=== PATIENT | female | born 1960 | race Caucasian/White ===

== ENCOUNTER → 2020-09-07 13:44 | Outpatient (BNVA) | payer OTHER, SELFPAY | PROVIDERS: PCP Internal Medicine; Referring Provider Internal Medicine; Visit Provider Obstetrics & Gynecology | DX: Z76.89 Persons encountering health services in other specified circumstances (principal) ==

== ENCOUNTER 2021-01-08 08:37 | Outpatient (REF) | payer OTHER, SELFPAY ==
--- NOTE | ~2021-01-08 | US_ITS ---
EXAMINATION: ULTRASOUND OF THE PELVIS CLINICAL INFORMATION: Postmenopausal bleeding. COMPARISON: 07/12/2020. TECHNIQUE: Transabdominal and transvaginal pelvic ultrasound. A transvaginal study was performed in addition to the transabdominal study which did not yield an adequate examination of the uterus and ovaries due to superimposed distended gas-filled loops of bowel. FINDINGS: The uterus is normal in size and appearance, measuring 12.2 x 7.5 x 10.5 cm longitudinally, anteroposteriorly and transversely. The endometrial stripe thickness is somewhat prominent, measuring 0.6 cm in thickness. Multiple uterine fibroids are again noted. 1. Right uterine body/fundus. Isoechoic to somewhat hyperechoic measuring 5 x 4.6 x 5.2 cm, similar to prior. 2. Posterior uterine fundus/body appearing somewhat hyperechoic measuring 3.6 x 2.9 x 3 cm, previously 3.2 x 4.3 x 4 cm. 3. Left posterior uterine body. This is heterogeneously hypoechoic measuring 2.9 x 2 x 2.5 cm, not previously seen. 4. Lower uterine segment anteriorly, somewhat hyperechoic, measuring 4.1 x 3.3 x 4 cm, previously 5.5 x 4.7 x 5.2 cm. The ovaries are not visualized. No adnexal mass or free fluid collection seen. US/US transvaginal IMPRESSION: Multiple uterine fibroids are again noted, relatively similar in appearance to previous imaging. Somewhat prominent endometrial stripe measuring 0.6 cm.
--- NOTE | ~2021-01-08 | US_ITS ---
EXAMINATION: ULTRASOUND OF THE PELVIS CLINICAL INFORMATION: Postmenopausal bleeding. COMPARISON: 07/12/2020. TECHNIQUE: Transabdominal and transvaginal pelvic ultrasound. A transvaginal study was performed in addition to the transabdominal study which did not yield an adequate examination of the uterus and ovaries due to superimposed distended gas-filled loops of bowel. FINDINGS: The uterus is normal in size and appearance, measuring 12.2 x 7.5 x 10.5 cm longitudinally, anteroposteriorly and transversely. The endometrial stripe thickness is somewhat prominent, measuring 0.6 cm in thickness. Multiple uterine fibroids are again noted. 1. Right uterine body/fundus. Isoechoic to somewhat hyperechoic measuring 5 x 4.6 x 5.2 cm, similar to prior. 2. Posterior uterine fundus/body appearing somewhat hyperechoic measuring 3.6 x 2.9 x 3 cm, previously 3.2 x 4.3 x 4 cm. 3. Left posterior uterine body. This is heterogeneously hypoechoic measuring 2.9 x 2 x 2.5 cm, not previously seen. 4. Lower uterine segment anteriorly, somewhat hyperechoic, measuring 4.1 x 3.3 x 4 cm, previously 5.5 x 4.7 x 5.2 cm. The ovaries are not visualized. No adnexal mass or free fluid collection seen. US/US pelvic complete IMPRESSION: Multiple uterine fibroids are again noted, relatively similar in appearance to previous imaging. Somewhat prominent endometrial stripe measuring 0.6 cm.
== END 2021-01-08 08:38 | disposition home or self-care (01) ==
LOC: HO.HMGCX 08:37
PROVIDERS: Visit Provider Obstetrics & Gynecology
DX: D21.9 Benign neoplasm of connective and other soft tissue, unspecified (principal)
CPT/HCPCS: 76830; 76856

== ENCOUNTER 2021-01-15 13:20 | Outpatient (REF) | payer OTHER, SELFPAY | END 2021-01-15 13:21 | disposition home or self-care (01) | LOC: HO.LAB 13:20 | PROVIDERS: PCP Internal Medicine; Visit Provider Obstetrics & Gynecology | DX: N95.0 Postmenopausal bleeding (principal); Z90.710 Acquired absence of both cervix and uterus | CPT/HCPCS: 58100; 88305 ==

== ENCOUNTER → 2021-01-29 14:53 | Outpatient (BNVA) | payer OTHER, SELFPAY | PROVIDERS: PCP Internal Medicine; Visit Provider Obstetrics & Gynecology ==

== ENCOUNTER → 2021-01-31 12:51 | Outpatient (BNVA) | payer OTHER, SELFPAY | PROVIDERS: PCP Internal Medicine; Visit Provider Obstetrics & Gynecology ==

== ENCOUNTER 2021-02-23 06:06 | Day surgery (SDC) | payer OTHER, SELFPAY ==
[2021-02-05 10:36] VITALS: BMI 33.0
[2021-02-23 06:14] VITALS: BP 157/89; PULSE 94; RESP 18; TEMP 35.6; O2SAT 97
[2021-02-23 06:38] VITALS: BMI 33.0
[2021-02-23] MEDS: Lactated Ringers 1,000 ML 50 ML IV (06:38)
--- NOTE | 2021-02-23 07:18 | P.CONAN_ITS ---
[facility] Active Problems Active Problems: All Active Problems (Updated 01/29/21 @ 15:44 by Oliver Fleming MD) Myoma (Acute) Postmenopausal bleeding (Acute) Past Medical History Medical History History of hysteroscopy Radial scar of right breast Family History Family History Maternal Grandmother Accelerated hypertension Breast CA Surgical History Surgical History History of breast surgery Social History Social History Alcohol intake: current Alcohol intake frequency: holidays/special occasions only Smoking Status: Never smoker Use of substances other than those prescribed or required for medical reasons: No Have you been hit, kicked, punched, or otherwise hurt by someone within the past year? If so, by whom?: No Advance Directives: No Advance Directives Information Provided: Yes Gender identity: female Meds Allergies Allergy/AdvReac Type Severity Reaction Status Date / Time Clindamycin HCl Allergy Unknown ? Uncoded 02/23/21 06:20 Active Medications: Current Medications Generic Name Dose Route Start Last Admin Trade Name Freq PRN Reason Stop Dose Admin Lactated Ringer's 1,000 mls @ 50 mls/hr 02/22/21 07:45 02/23/21 06:38 Lr IV 50 mls/hr .Q20H ELIER Administration Home Medications Medication Instructions Recorded Confirmed Last Taken Type loratadine 10 mg tablet 10 mg PO DAILY 09/07/20 01/31/21 Unknown History cholecalciferol (vitamin D3) 10 10 mcg PO DAILY 01/31/21 01/31/21 Unknown History mcg (400 unit) capsule Exam Exam Date and Time: February 23, 2021717 Height,Weight and Vital Signs: Height 5 ft 7 in Weight 95.788 kg Last Vital Signs Temp 96.0 F L 02/23/21 06:14 Pulse 94 02/23/21 06:14 Resp 18 02/23/21 06:14 BP 157/89 H 02/23/21 06:14 Pulse Ox 97 02/23/21 06:14 Airway Mallampati Class: III TM Dist: >3cm Neck ROM: Full Assessment and Plan Assessment Anesthesia Assessment: Anesthesia Plan Discussed and Chart Reviewed Final Anesthetic Review NPO: Yes ASA Class: II Final Preanesthetic Review: No Changes in Pt Med Stat, Meds/Allgs Chart Reviewed, Consent Obtained/Reviewed and Anes Risks/Benef Reviewed Patient Risk: Low Procedure Risk: Low Assessment/Block/Sedation in SS: Assess/Block/Sedation-SS Anesthetic Plan Anesthetic Plan: MAC: Disposition: Standard PACU
--- NOTE | 2021-02-23 07:32 | MHC.SHP ---
Pre-Procedural Eval Section A The patient is an INPATIENT: No Changes since office visit: No Cold of Flu in the past 2 weeks, No New Medical Problems, No Changes in Medication and No Patient answered all questions The History & Physical has been completed within 30 days and I have reviewed it.: Yes Section B Chief Complaint: PMB Allergies: Allergies Allergy/AdvReac Type Severity Reaction Status Date / Time Clindamycin HCl Allergy Unknown ? Uncoded 02/23/21 06:20 Plan Diagnosis/Plan: Unchanged I have reviewed the history and physical and performed a pertinent physical examination on my patient. No changes have occurred unless specified.
--- NOTE | 2021-02-23 07:48 | P.OP_ITS ---
Operative Note Operative Note Date of Service: 02/23/21 Narrative: Preop Diagnosis: Post Menopausal bleeding Operation: Diagnostic Hysteroscopy, Dilataion & Curettage Post Op Diagnosis: Normal endometrial cavity QBL: Minimal Anesthesia: MAC Surgeon: Oliver Fleming MD Imaging System Administrator: None Complication: None Pathology: Endometrial Scrapings Complication: None Pathology: Endometrial Scrapings Procedure: The patient was put in the dorsal lithotomy position, scrubbed, and draped in the usual manner. A sterile speculum was inserted in the patient's vagina. The anterior lip of the cervix was grasped with a single tooth tenaculum. The cervix was dilated up to 5 mm, then the scope was inserted in the patient's uterus. Inspection revealed Normal endometrial cavity. The Myosure Reach device was used; . At the end of the procedure, all instruments were taken out of the patient uterine and vaginal cavity. The single tooth tenaculum was removed and homeostasis was assured using pressure,. The patient tolerated the procedure well and was transferred to the PACU in a stable condition.
--- NOTE | 2021-02-23 07:48 | PM.OP ---
Brief Operative Note Date of Service: 02/23/21 Pre-op diagnosis: Post menopausal bleeding Post-op diagnosis: same Procedure: Hysteroscopy D&C, Polypectomy Surgeon: Oliver Fleming MD Anesthesia: MAC Estimated blood loss (mL): 0 Pathology: other (Endometrial Scrapping) Condition: stable Disposition: PACU
[2021-02-23 07:55] VITALS: BP 120/64; PULSE 83; RESP 12; TEMP 36.3; O2SAT 95
[2021-02-23 08:10] VITALS: BP 135/77; PULSE 83; RESP 18; TEMP 36.3; O2SAT 95
== END 2021-02-23 08:50 | disposition home or self-care (01) ==
LOC: HO.SSS 06:06
PROVIDERS: PCP Internal Medicine; Visit Provider Obstetrics & Gynecology
PROC: 0UDB8ZZ Extraction of Endometrium, Via Natural or Artificial Opening Endoscopic (ICD-10-PCS; CPT 58558; principal; 2021-02-23 07:30)
DX: N95.0 Postmenopausal bleeding (principal); Z88.1 Allergy status to other antibiotic agents
CPT/HCPCS: 58558; 88305; J1100; J2250; J2405; J3010

== ENCOUNTER → 2021-03-08 09:31 | Outpatient (BNVA) | payer OTHER, SELFPAY | PROVIDERS: PCP Internal Medicine; Visit Provider Obstetrics & Gynecology ==

== ENCOUNTER 2022-07-06 07:15 | Outpatient (REF) | payer OTHER, SELFPAY ==
[2022-07-06 11:13] LABS: MANUAL DIFF FLAG NO
[2022-07-06 11:17] LABS: Basophils Percent Auto 0.6 % (0-2); Eosinophils Absolute Auto 0.2 X10*3/uL (0.0-0.4); Eosinophils Percent Auto 3.1 % (0-4); Hematocrit 41.9 % (37.0-47.0); Hemoglobin 13.8 g/dl (12.0-16.0); Imm Gran Abs Auto 0.01 X10*3/uL (0.00-0.03); Imm Gran Pct Auto 0.2 % (0.0-0.4); Lymphocytes Percent Auto 31.5 % (20-40); Mean Corpuscular HGB Conc 32.9 g/dl (31.0-35.0); Mean Corpuscular Hemoglobin 29.2 pg (27.0-33.0); Mean Corpuscular Volume 88.6 fL (80.0-98.0); Mean Platelet Volume 10.6 fL (9.4-12.3); Monocytes Absolute Auto 0.4 X10*3/uL (0.1-1.2); Monocytes Percent Auto 6.7 % (2-11); Neutrophils Absolute Auto 3.7 x10*3/uL (2.0-8.3); Neutrophils Percent Auto 57.9 % (45-73); Platelet Count 322 X10*3/uL (160-400); Red Blood Count 4.73 X10*6/uL (4.20-5.50); Red Cell Distribution Width 13.5 % (11.0-16.0); White Blood Count 6.5 X10*3/uL (4.8-10.8)
[2022-07-06 11:49] LABS: Alanine Aminotransferase 12 U/L (0-31); Alkaline Phosphatase 97 U/L (39-117); Anion Gap 15 (12-20); Aspartate Amino Transferase 12 U/L (5-31); Bilirubin Total 0.3 mg/dL (0.0-1.0); Blood Urea Nitrogen 9 mg/dL (9-16); Calcium 8.6 mg/dL (8.4-10.2); Carbon Dioxide 25 mmol/L (22-29); Chloride 107 mmol/L (96-108); Cholesterol 243 mg/dL; Estimated Glomerular Filt Rate > 60; Glucose Fasting 95 mg/dL (60-99); HDL Cholesterol 49 mg/dL; LDL Cholesterol Calculated 170 mg/dl; Potassium 4.4 mmol/L (3.3-5.1); Sodium 143 mmol/L (135-145); Total Protein 6.5 g/dL (6.5-8.0); Triglycerides 124 mg/dL
[2022-07-06 11:56] LABS: TSH reflex Free T4 2.15 uIU/mL (0.32-4.0); Vitamin D 25-OH Total 13.6 ng/mL (>30)
== END 2022-07-06 07:16 | disposition home or self-care (01) ==
LOC: HO.HMGCLDS 07:15
PROVIDERS: PCP Internal Medicine; Visit Provider Internal Medicine
DX: Z00.00 Encounter for general adult medical examination without abnormal findings (principal)
CPT/HCPCS: 36415; 80053; 80061; 82306; 84443; 85025

== ENCOUNTER 2022-09-30 11:45 | Outpatient (REF) | payer OTHER, SELFPAY ==
--- NOTE | ~2022-09-30 | XR_ITS ---
EXAMINATION: XR WRIST, LEFT CLINICAL INFORMATION: Sprain left wrist COMPARISON: None TECHNIQUE: 4 views of the left wrist FINDINGS: There is no fracture. Possible small marginal osteophytes about the first carpometacarpal joint. No joint space narrowing. Remaining bones joints and soft tissues unremarkable. XR/XR wrist LT min 3V IMPRESSION: 1. No acute abnormality. 2. Possible Minimal osteoarthritis of the first carpometacarpal joint.
== END 2022-09-30 11:46 | disposition home or self-care (01) ==
LOC: HO.HMGCX 11:45
PROVIDERS: PCP Internal Medicine; Visit Provider Internal Medicine
DX: S63.502A Unspecified sprain of left wrist, initial encounter (principal); X58.XXXA Exposure to other specified factors, initial encounter; Y93.9 Activity, unspecified; Y92.9 Unspecified place or not applicable; Y99.9 Unspecified external cause status
CPT/HCPCS: 73110

== ENCOUNTER 2024-02-23 15:44 | Outpatient (AMB) | payer OTHER, SELFPAY ==
--- NOTE | 2024-02-23 15:45 | AM.OFFWIN_ITS ---
Intake Vital Signs 02/23/24 15:46 Height 5 ft 7 in BP 130/80 Blood Pressure Location Lt brachial Position Sitting Pulse 67 Pulse Source Pulse Oximeter Temp 97.8 F Temp Source Oral Pulse Oximetry (%) 98 Oxygen Delivery Method Room Air Intake Visit Reasons: EP Lt ear pain Intake Note: pt is here for left ear pain Patient Tobacco Use Status: Never used Tobacco Allergies Clindamycin HCl Allergy (Unknown, Uncoded 02/23/24 15:46) hives, itching, C diff Do you need a note to return to daycare/school/sports/work: No HPI HPI Comments History of Present Illness Details presents to walkin today for sick visit Endorses left ear pain for last 1 week. Denies hearing loss, drainage from ear, ringing in the ear, dizziness, syncope. Patient denies sore throat, cough, fever, vomiting, diarrhea, headache. [facility] Medical History History of hysteroscopy Radial scar of right breast Surgical History History of breast surgery History of hysteroscopy Family History Maternal Grandmother Accelerated hypertension Breast CA Social History Housing: House Alcohol intake: current Alcohol intake frequency: holidays/special occasions only Patient Tobacco Use Status: Never used Tobacco e-Cigarette/Vaping Use: Never Used Current occupational status: employed Gender identity: Female Cognitive needs: No Hearing needs: No Vision needs: Yes Female Reproductive History Menstrual Age of Menarche: 12 Review of Systems Const All systems reviewed & are unremarkable except as noted in HPI and below Physical Exam General: awake, alert, oriented. Answers questions appropriately. Fully engaged in examination. Skin: warm, dry, intact HEENT: Normocephalic. Hearing intact. Left TM erythematous, cloudy. Right TM normal to visual inspection. Cardiac: External chest normal in appearance. Respiratory: No cough, audible wheezing or stridor. Abdomen: without gross distension. MS: No obvious swelling or deformities. Neurological: Oriented to person, place, time and situation. Thought process intact. Psychiatric: Appropriate mood and affect. Good judgment and insight. Assessment & Plan Assessment & Plan (1) Left otitis media: Code(s): H66.92 - Otitis media, unspecified, left ear Plan presented to walkin today with complaints of left ear pain amoxicillin-pot clavulanate 400-57 mg, 2 tabs by mouth BID for 7 days. Patient request chewable tablets, she is unable to swallow large pills Drink plenty of fluids, avoid getting anything in the ear, tylenol/motrin as needed. All questions and concerns were addressed during the visit, patient agrees with the plan. Follow up with pcp or in walkin for any new or worsening symptoms. Medications: New amoxicillin-pot clavulanate 400-57 mg 2 tabs PO BID 14 tabs 0RF Coding Level of Care Code Est Pt Level 3 (40886) Diagnoses Left otitis media H66.92
[2024-02-23 15:46] VITALS: BP 130/80; PULSE 67; TEMP 36.6; O2SAT 98
== END 2024-02-23 16:20 | disposition home or self-care (01) ==
PROVIDERS: PCP Internal Medicine; Visit Provider Registered Nurse Emergency
DX: H66.92 Otitis media, unspecified, left ear (principal)
CPT/HCPCS: 99213

== ENCOUNTER 2025-11-01 14:32 | Outpatient (AMB) | payer OTHER, SELFPAY ==
--- NOTE | 2025-11-01 14:34 | MHC.OFFWIV ---
Intake Vital Signs 11/01/25 14:47 Height 5 ft 7.5 in Weight 199 lb BMI 30.7 BP 118/80 Blood Pressure Location Lt brachial Position Sitting Pulse 87 Pulse Source Pulse Oximeter Temp 97.7 F Temp Source Oral Pulse Oximetry (%) 97 Oxygen Delivery Method Room Air Intake Visit Reasons: EP Cough, congestion Intake Note: Patient presents c/o cough, chest congestion, nasal congestion x3 weeks. Patient Tobacco Use Status: Never used Tobacco Allergies clindamycin Allergy (Mild, Verified 11/01/25 14:50) hives, itching, c. diff HPI HPI Comments History of Present Illness Details History - The patient is a 64-year-old female presenting with a lingering cough that has persisted for approximately three weeks. - The cough presents as intermittent coughing fits and is exacerbated by lying down. - She has been managing her symptoms with cough drops and hydration, noting that cough syrup was not effective. - Approximately one week into her illness, she experienced what was likely Norovirus, characterized by five days of nausea, vomiting, and diarrhea. - She reports vomiting for about 16 hours during this period. - The patient has no history of asthma, COPD, or smoking. - She takes loratadine for allergies but is on no other medications. - She has not seen her primary care doctor since 2021 and needs to re-establish care. - Her earlier this year from Stage IV colon cancer that had metastasized to his lungs, presenting initially as a cough. - He was reportedly overdue for a colonoscopy. [facility] Medical History (Updated 11/01/25 @ 15:15 by Mary Turk PA-C) Subacute cough Radial scar of right breast Surgical History History of breast surgery History of hysteroscopy Family History Maternal Grandmother Accelerated hypertension Breast CA Social History Housing: House Alcohol intake: current Alcohol intake frequency: holidays/special occasions only Patient Tobacco Use Status: Never used Tobacco e-Cigarette/Vaping Use: Never Used Current occupational status: employed Gender identity: Female Cognitive needs: No Hearing needs: No Vision needs: Yes Female Reproductive History Menstrual Age of Menarche: 12 Review of Systems Narrative Review of Systems - Respiratory: Reports a lingering cough for three weeks that occurs in fits and is worse when lying down. - Denies shortness of breath or wheezing. - ENT: Reports feeling of a runny nose. - Denies sinus pain or head congestion. - Gastrointestinal: Reports a resolved episode of nausea, vomiting, and diarrhea that lasted five days. All systems reviewed and are unremarkable except as noted in HPI Physical Exam Exam Exam: Physical Exam General: Cooperative, healthy appearing, comfortable and no acute distress Orientation/consciousness: Patient oriented x3 Limitations: No limitations Head: Normal to inspection Ears: Hearing grossly normal bilaterally, external ears normal, EAC's normal bilaterally and TM's normal bilaterally Nose: Normal external nose present, Normal nares present and No nasal discharge present Face and sinus: Normal facial exam and sinuses nontender Mouth: Normal oral and palatal mucosa present and moist mucous membranes Throat: Tonsils normal, no exudates, uvula midline, posterior oropharynx erythema Eyes: Appearance normal, both eyes and all related structures Neck: Normal visual inspection, full ROM Respiratory: Clear to auscultation bilaterally. Normal respiratory effort, able to speak in complete sentences, not actively coughing, no respiratory distress, not tachypneic, no tripod positioning and no use of accessory muscles Cardiovascular: Regular rate and rhythm. Normal S1 and S2 Skin: No rashes or lesions noted Neuro: Patient oriented x3 Extremities: Normal to inspection and Yes no clubbing, cyanosis or edema Vital Signs: Last Vital Signs Temp 97.7 F 11/01/25 14:47 Pulse 87 11/01/25 14:47 BP 118/80 11/01/25 14:47 Pulse Ox 97 11/01/25 14:47 Oxygen Delivery Method Room Air 11/01/25 14:47 BMI result Body Mass Index 30.7 Assessment & Plan Assessment & Plan (1) Subacute cough: Code(s): R05.2 - Subacute cough Plan: Patient was informed and verbally consented to the use of an ambient scribe for clinic note documentation during this visit. - VSS, pt well appearing and PE unremarkable. - The patient's 3+ weeks of a cough is likely post-viral, a residual symptom of a recent cold. - The physical exam findings of clear lungs and an oxygen saturation of 97% support this assessment. - A chest X-ray was offered due to the length of the cough. - Reassurance was provided that a post-viral cough can sometimes last up to three months. - Recommended symptomatic management, including propping up with pillows while sleeping and continuing to take loratadine to help dry up secretions. - Sent Tesselon Pearles to help reduce cought at night. Establishment Of Primary Care - The patient has not seen a primary care provider since 2021 and needs to re-establish care for ongoing health maintenance and preventative screenings. - Provided information for a new clinic at [address] [place] [address], which may be more convenient for the patient, and suggested contacting them to schedule an appointment with a new provider, such as Dr. Lyon. - Advised the patient to get the clinic's phone number from the assistant front desk manager. Orders: Orders XR chest 2V Today R05.9 - Cough, unspecified Medications: New benzonatate DO NOT ALLOW CHILDREN TO HAVE ACCESS TO THIS MEDICATION IT IS DANGEROUS FOR CHILDREN. 200 mg PO BEDTIME PRN 10 caps 0RF cough Coding Level of Care Code New Pt Level 4 (10613) Diagnoses Subacute cough R05.2
[2025-11-01 14:47] VITALS: BP 118/80; PULSE 87; TEMP 36.5; O2SAT 97; BMI 30.7
--- OUTSIDE RECORDS SUMMARY | 2025-11-01 18:11 | XMS_ITS | Patient Health Record ---
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 Name Role Phone NICOLE AGUIRRE Primary Care Provider Unavail able AbyAyla beckman Unavailable [phone] Allergies Allergen (clinical drug ingredient) Drug/Non Drug Allergy documented on EMR Reaction Allergy Type Onset Date Status clindamycin Clindamycin HCl Unknown Drug Allergy Active Reason For Referral No Information Medications Medication SIG (Take, Route, Fr equency, Duration) Notes Start Date End Date Status miSOPROStol 200 MCG 2 tablets with food Orally night before procedure; Duration: 1 days 01/23/2016 Active Estrace 0.1 MG/GM 1g Vaginal q3d; Dura tion: 30 days 01/23/2016 Active Social History Tobacco Use: Social History Observation Description Date Details (start date - stop date) Former Smoker NA - NA Tobacco Use/Smoking Question Answer Notes Are you a former smoker Alcohol Screen (Audit-C) Question Answer Notes Did you have a drink contain ing alcohol in the past year? Yes How often did you have a dri nk containing alcohol in the past year? Monthly or less (1 point) How many drinks did you have on a typical day when you were drinking in the past year? 1 or 2 drinks (0 point) Points 1 Interpretation Negative Sexual History Question Answer Notes Had sex in the past 12 months (vaginal, oral, or anal)? Yes with Men only Prevention strategies discussed: Other Problems Problem Type SNOMED Code ICD Code Onset Dates Problem Status W/U Status Risk Notes Problem Postmenopausal atrophic vaginitis (39495066) Postmenopausal atrophic vaginitis (N95.2) Active confirmed Problem Postmenopausal bleeding (94652912) Postmenopausal bleeding (N95.0) Active confirmed Problem Obesity (959154031) Obesity, unspecified (E66.9) Active confirmed Plan Of Treatment No Information Insurance Providers Payer Name Payer Address Payer Phone Subscriber Number Group Number Insured Name Patient Relationship to Insured Coverage Start Date Coverage End Date [facility] [address] [facility] [place], [place] [id number] GRISELDA RAMIREZ Self - patient is the insured Medical (General) History Medical History History ICD Code Postmenopausal bleeding N95.0 Postmenopausal atrophic vaginitis N95.2 Obesity, unspecified E66.9 Surgical History Surgery Date(Month/Year) thyroid bx: benign 2013
== END 2025-11-01 15:28 | disposition home or self-care (01) ==
PROVIDERS: PCP Internal Medicine; Visit Provider Physician Assistant
DX: R05.2 Subacute cough (principal)

== ENCOUNTER 2025-11-01 14:32 | Outpatient (REF) | payer OTHER, SELFPAY ==
--- NOTE | ~2025-11-01 | XR_ITS ---
EXAMINATION: XR CHEST CLINICAL INFORMATION: R05.9 - Cough, unspecified COMPARISON: 08/09/2019. TECHNIQUE: 2 views of the chest were obtained. FINDINGS: The cardiac, hilar, and mediastinal contours are normal. The lungs are clear bilaterally. There is no pneumothorax or pleural effusion. There is no focal osseous or soft tissue abnormality. XR/XR chest 2V IMPRESSION: No active pulmonary disease. Electronically signed by: Rosas Zambrano MD 11/01/2025 03:31 PM [facility]
== END 2025-11-01 14:33 | disposition home or self-care (01) ==
LOC: HO.HMGCX 14:32
PROVIDERS: PCP Internal Medicine; Visit Provider Physician Assistant
DX: R05.2 Subacute cough (principal)
CPT/HCPCS: 71046

== ENCOUNTER → 2025-11-01 15:20 | Outpatient (BNV) | payer OTHER, SELFPAY | PROVIDERS: PCP Internal Medicine; Visit Provider Radiology Diagnostic Radiology | DX: R05.9 Cough, unspecified (principal) | CPT/HCPCS: 71046 ==